=== PATIENT | male | born 1990 | race African-American/Black ===

== ENCOUNTER 2018-04-10 20:03 | Emergency (ER) | payer OTHER ==
[~2018-04-10] VITALS: Ht 170.2 cm; Wt 79.4 kg
[2018-04-10] MEDS ORDERED: ALEVE220 MG (20:23)
[2018-04-10] MEDS ORDERED: PENICILLIN VK500 M1 PO (21:07)
[2018-04-10] MEDS ORDERED: IBUPROFEN 600600 M1 PO (21:07)
[2018-04-10] MEDS ORDERED: NORCO 5-325 TA1 EACH PO (21:07)
[2018-04-10 21:37] VITALS: BP 142/59
== END 2018-04-10 21:40 | disposition home or self-care (01) ==
LOC: ER 20:03
DX: K00.6 Disturbances in tooth eruption (principal)